=== PATIENT | female | born 1990 | race Caucasian/White ===

== ENCOUNTER 2025-08-07 16:05 | Emergency (ER) | payer BC, SELFPAY ==
[2025-08-07] VITALS (7 sets, daily range): BP systolic 111–145; BP diastolic 78–84; PULSE 66–75; RESP 20; TEMP 36.4; O2SAT 97–100
--- NOTE | ~2025-08-07 | XR_ITS ---
XR chest 1V portable INDICATION:Headache . REFERENCE: None FINDINGS: A single AP of the chest demonstrates normal heart size. The lungs are clear. There is no evidence of pneumothorax or pleural effusion. IMPRESSION: No acute pulmonary findings. Reviewed, dictated and finalized at location S. [employer]
--- NOTE | ~2025-08-07 | CT_ITS ---
EXAMINATION: CT brain wo con COMPARISON: None HISTORY: Headache TECHNIQUE: Axial images were obtained through the brain without IV contrast. CT scan performed using dose optimization techniques including the following automated exposure control; adjustment of mA and/or kV; use of iterative reconstruction technique. Automatic exposure control was used to reduce radiation dose. Permanent radiation dose record is archived to PACS. FINDINGS: No acute infarct or parenchymal hemorrhage. No abnormal mass or mass effect. No midline shift. No extra-axial fluid collections. No hydrocephalus. . Mastoid air cells unremarkable. Sinuses and orbits unremarkable. No acute fracture. No significant facial or scalp soft tissue swelling evident. No radiopaque foreign body is seen. Impression: 1.No acute intracranial abnormality. Reviewed, dictated and finalized at location P. MANAGEMENT SUPERVISOR Impression: 1.No acute intracranial abnormality.
--- NOTE | 2025-08-07 16:19 | PC.NURSE ---
dr ortiz in with pt
--- NOTE | 2025-08-07 16:24 | ED.GENADULT ---
HPI - General Adult General Chief complaint: Headache Stated complaint: headache Source: patient History of Present Illness HPI narrative: 35 years old white female came to the ED with her mother from home complaining of intermittent headache, sometime frontal sometime generalized over the last 5 days, usually last for few minutes up to maximum 1 hour. Associated is tingling numbness at the back of the head. Worse bending over, better when she could sleep. She denies any fever, chills, nausea, vomiting, diarrhea, constipation, chest pain, shortness of breath, back pain. Patient's mother reported that the patient going through a lot of stress and been working longer hours for on average 6 days a week. Patient denied any cigarette smoking or drinking, uses marijuana occasionally. Does not take medicine at home. Related Data Home Medications ?Medication ?Instructions ?Recorded ?Confirmed ?Last Taken ?Type No Home Medications 08/07/25 08/07/25 Unknown History Allergies Allergy/AdvReac Type Severity Reaction Status Date / Time Cephalosporins Allergy Mild Rash Verified 08/07/25 16:20 Penicillins Allergy Mild Rash Verified 08/07/25 16:20 Review of Systems Review of Systems: All systems reviewed & are unremarkable except as noted in HPI and below Exam Narrative: General appearance: Well-developed, well-nourished Skin: Normal color Head: Normocephalic, nontraumatic Eyes: Clear conjunctiva ENT: Oropharynx normal, ears normal, nose normal Neck: Supple, nontender Chest and respiratory: Airway patent, no respiratory distress, no accessory muscle use Heart: Regular rate/rhythm Abdomen: Soft, nontender, no organomegaly, quiet bowel sounds Vascular: Normal peripheral pulses, normal capillary refill. Musculoskeletal: Normal range of motion, nontender back Neurologic: Alert and oriented ?3, BALL[employer]IP[employer] is normal as tested, no gross motor deficit Course Vital Signs Vital signs: Vital Signs Temperature 36.4 C L 08/07/25 16:05 Pulse Rate 72 08/07/25 16:05 Respiratory Rate 20 08/07/25 16:05 Blood Pressure 145/82 H 08/07/25 16:05 Pulse Oximetry 97 08/07/25 16:05 Oxygen Delivery Room Air 08/07/25 16:05 Temperature 36.4 C L 08/07/25 16:05 Pulse Rate 75 08/07/25 17:15 Respiratory Rate 20 08/07/25 17:15 Blood Pressure 111/84 11/12/25 17:31 Pulse Oximetry 98 08/07/25 17:31 Oxygen Delivery Room Air 08/07/25 17:15 Medical Decision Making [facility] Narrative Medical decision making narrative: Patient presents with intermittent headache Vital signs showing blood pressure 145/82 otherwise within normal limit Physical examination is unremarkable Differential diagnosis anxiety like symptoms, intracranial abnormalities, urinary tract infection, electrolyte imbalance, dehydration Blood workup today includes CBC, CMP, TSH showed no significant abnormalities Chest x-ray showed no acute abnormalities CT head without contrast showed no acute abnormalities Urinalysis showed no no evidence of infection Diagnosis unspecified headache, anxiety Patient declined Ativan in the ED The pt was discharged to home.the pt,s condition upon discharge was fair,education was provided to the pt in reference to the final impression,discharge study results,treatment,prognosis and need for follow up . Differential Diagnosis Differential Diagnosis: As above Vital Signs Vital Signs: Vital Signs Temperature 36.4 C L 08/07/25 16:05 Pulse Rate 72 08/07/25 16:05 Respiratory Rate 20 08/07/25 16:05 Blood Pressure 145/82 H 08/07/25 16:05 Pulse Oximetry 97 08/07/25 16:05 Oxygen Delivery Room Air 08/07/25 16:05 Temperature 36.4 C L 08/07/25 16:05 Pulse Rate 75 08/07/25 17:15 Respiratory Rate 20 08/07/25 17:15 Blood Pressure 111/84 08/07/25 17:31 Pulse Oximetry 98 08/07/25 17:31 Oxygen Delivery Room Air 08/07/25 17:15 Lab Data 08/07/25 16:42 08/07/25 16:42 Labs: Lab Results 08/07/25 08/07/25 Range/Units 16:42 17:49 WBC 7.8 (4.8-10.8) K/mm3 RBC 4.86 (4.20-5.40) M/mm3 Hgb 13.8 (12.0-15.0) g/dL Hct 42.2 (35.0-49.0) % MCV 86.8 (78.0-102.0) fL MCH 28.4 (27.0-31.0) pg MCHC 32.7 (32-36) g/dL RDW 13.0 (11.6-14.4) % Plt Count 276 (150-420) K/mm3 MPV 9.3 (9.2-11.8) fl Immature Gran % (Auto) 0.5 H (0.0-0.0) % Neut % (Auto) 62.7 (50.0-70.0) % Lymph % (Auto) 28.4 (18.0-42.0) % Island % (Auto) 6.2 (2.0-11.0) % Eos % (Auto) 1.7 (1.0-6.0) % Baso % (Auto) 0.5 (0.0-1.0) % Lymph # (Auto) 2.21 (1.10-4.50) K/mm3 [place] # (Auto) 0.48 (0.10-0.90) K/mm3 Eos # (Auto) 0.13 (0.02-0.50) K/mm3 Baso # (Auto) 0.04 (0.00-0.10) K/mm3 Abs Immat Gran (auto) 0.04 H (0.00-0.00) K/mm3 Absolute Neuts (auto) 4.87 (1.70-7.20) K/mm3 Absolute Nucleated RBC 0.00 (0.00-0.00) K/mm3 Nucleated RBC % 0.0 (0-0.0) % Sodium 141 (137-145) mmol/L Potassium 3.8 (3.4-5.0) mmol/L Chloride 106 (98-107) mmol/L Carbon Dioxide 27 (22-30) mmol/L Anion Gap 8 (4-12) mmol/L BUN 10 (7-17) mg/dL Creatinine 0.66 L (0.7-1.0) mg/dL Estim Creat Clear Calc 132 ml/min Estimated GFR > 60 (59 - ) Glucose 97 (65-110) mg/dL Calculated Osmolality 291 (285-295) mOsm/kg Calcium 9.2 (8.4-10.2) mg/dL Total Bilirubin 1.1 (0.2-1.3) mg/dL AST 38 H (14-36) U/L ALT 37 H (6-35) U/L Alkaline Phosphatase 108 (38-126) U/L Total Protein 7.5 (6.3-8.2) g/dL Albumin 4.6 (3.5-5.1) g/dL TSH 1.710 (0.465-4.680) uIU/mL Urine Color Light yellow (Yellow) Urine Appearance Clear (Clear) Urine pH 7.0 (5.0-8.0) Ur Specific [place] 1.020 (1.010-1.020) Urine Protein Negative (Negative) Urine Glucose (UA) Negative (Negative) Urine Ketones 1+ H (Negative) Ur Blood (Man) Negative (Negative) Urine Nitrate Negative (Negative) Urine Bilirubin Negative (Negative) Urine Urobilinogen 0.2 (0.2-1.0) mg/dL Leukocyte Esterase Rfl Negative (Negative) BASSAM/UL Urine Test Negative Imaging Data Radiologist's impression: Impressions Chest X-Ray 08/07/25 17:02 IMPRESSION: No acute pulmonary findings. Head CT 08/07/25 17:02 Impression: 1.No acute intracranial abnormality. Critical Care Time Critical Care Time Critical Care Time: No Discharge Plan Discharge Clinical Impression: Headache Patient Disposition: Home Condition: Stable Instructions: Stress (ED), Acute Headache (ED) Additional Instructions: Return if symptoms are worsening , call your family physician for appointment, take Tylenol, ibuprofen as as needed for aches and pain, continue home medications. Patient Language: [place] Prescriptions: No Action No Home Medications Follow-up/Referrals: Pankaj Bailey MD [Physician, Internal Medicine] Stand Alone Forms: Work/School Release IP
[2025-08-07 16:46] LABS: Hematocrit 42.2 % (35.0-49.0); Hemoglobin 13.8 g/dL (12.0-15.0); Immature Granulocyte Percent A 0.5 % (0.0-0.0); Lymphocytes Absolute Auto 2.21 K/mm3 (1.10-4.50); Mean Corpuscular HGB Conc 32.7 g/dL (32-36); Mean Corpuscular Hemoglobin 28.4 pg (27.0-31.0); Mean Corpuscular Volume 86.8 fL (78.0-102.0); Nucleated Red Blood Cells Absolute Auto 0.00 K/mm3 (0.00-0.00); Nucleated Red Blood Cells Perc 0.0 % (0-0.0); Platelet Count Result 276 K/mm3 (150-420); Red Blood Count 4.86 M/mm3 (4.20-5.40); White Blood Count 7.8 K/mm3 (4.8-10.8)
[2025-08-07 16:57] LABS: Alanine Aminotransferase 37 U/L (6-35); Albumin Level 4.6 g/dL (3.5-5.1); Alkaline Phosphatase 108 U/L (38-126); Anion Gap 8 mmol/L (4-12); Aspartate Amino Transferase 38 U/L (14-36); Blood Urea Nitrogen 10 mg/dL (7-17); Calcium 9.2 mg/dL (8.4-10.2); Carbon Dioxide 27 mmol/L (22-30); Chloride 106 mmol/L (98-107); Estimated CRCL calculation 132 ml/min; Estimated Glomerular Filt Rate > 60; Glucose 97 mg/dL (65-110); Osmolality Calculated 291 mOsm/kg (285-295); Potassium 3.8 mmol/L (3.4-5.0); Sodium 141 mmol/L (137-145); Total Protein 7.5 g/dL (6.3-8.2)
[2025-08-07 17:28] LABS: Thyroid Stimulating Hormone 1.710 uIU/mL (0.465-4.680)
[2025-08-07 17:55] LABS: Add Urine Microscopic? NO; Appearance Urine Clear (Clear); Glucose Urine UA Negative (Negative); Leukocyte Esterase Ur Negative LEU/UL (Negative); Nitrate Urine Negative (Negative); Specific Grav Ur 1.020 (1.010-1.020)
[2025-08-07 17:57] LABS: Pregnancy On Board Control Positive
[2025-08-13 13:08] LABS: Bilirubin,Total < 0.1 mg/dL (0.2-1.3)
== END 2025-08-07 18:16 | disposition home or self-care (01) ==
PROVIDERS: Emergency Provider Emergency Medicine; Referring Provider Family Medicine
DX: R51.9 Headache, unspecified (principal)
CPT/HCPCS: 36415; 70450; 71045; 80053; 81003; 81025; 84443; 85025; 99284; A9270